=== PATIENT | female | born 1935 | race Caucasian/White ===

== ENCOUNTER 2020-04-13 07:11 | Day surgery (SDC) | payer MEDICARE ==
[~2020-04-13] VITALS: Ht 162.6 cm; Wt 80.2 kg
[~2020-04-13 07:11] MED LIST: CALCIUM; Citalopram HBr20 MG PO; ESCI20; ESTRADIOL; GEMF600; GLUCOPHAGE1000 M1 PO; HUMALOG KW100 UNIT/1; INSDET100; LEVSOD100; LEVSOD100 PO; LISI10; LISI20 PO; MULVITA; PRAV20 PO; ROSI4
== END 2020-04-13 09:25 | disposition home or self-care (01) ==
LOC: ORSCSDS 07:11
PROVIDERS: Ophthalmology
PROC: 08RK3JZ Replacement of Left Lens with Synthetic Substitute, Percutaneous Approach (ICD-10-PCS; principal; 2020-04-13 08:15)
DX: H25.12 Age-related nuclear cataract, left eye (principal); E11.9 Type 2 diabetes mellitus without complications; I10 Essential (primary) hypertension; F32.9 Major depressive disorder, single episode, unspecified; Z79.84 Long term (current) use of oral hypoglycemic drugs; Z79.899 Other long term (current) drug therapy
CPT/HCPCS: 82947; J2001; J2250; J3010; J3301; J7040; V2632

== ENCOUNTER 2020-12-24 15:47 | Emergency (ER) | payer MEDICARE ==
[~2020-12-24] VITALS: Ht 162.6 cm; Wt 74.4 kg
[2020-12-24 16:45] LABS: BASOPHILS ABSOLUTE AUTO 0.07 K/mm3 (0.00-0.23); BASOPHILS PERCENT AUTO 1 % (0-2); EOSINOPHILS ABSOLUTE AUTO 0.12 K/mm3 (0.00-0.68); EOSINOPHILS PERCENT AUTO 1 % (0-6); Hematocrit 39.6 % (33.0-51.0); Hemoglobin 12.9 g/dL (11.5-16.0); IMMATURE GRAN ABSOLUTE AUTO 0.07 K/mm3 (0.00-0.10); IMMATURE GRAN PERCENT AUTO 1 % (0-1); LYMPHOCYTES ABSOLUTE AUTO 0.78 K/mm3 (0.84-5.20); LYMPHOCYTES PERCENT AUTO 5 % (21-46); MONOCYTES ABSOLUTE AUTO 0.68 K/mm3 (0.16-1.47); MONOCYTES PERCENT AUTO 5 % (4-13); Mean Corpuscular HGB 30.1 pg (26.0-34.0); Mean Corpuscular HGB Conc 32.6 g/dL (31.5-36.5); Mean Corpuscular Volume 93 fL (80-100); NEUTROPHILS ABSOLUTE AUTO 13.22 K/mm3 (1.96-9.15); NEUTROPHILS PERCENT AUTO 88 % (41-73); Platelet Count 241 K/mm3 (150-400); RDW Coefficient Variation 12.1 % (11.7-14.2); RDW Standard Deviation 41.5 fL (35.1-46.3); Red Blood Cell Count 4.28 M/mm3 (3.80-5.20); White Blood Cell Count 14.94 K/mm3 (4.00-11.30)
[2020-12-24 17:03] LABS: Alanine Aminotransfer (ALT/SGP 26 U/L (12-78); Albumin/Globulin Ratio 1.1 (0.8-1.8); Alk Phos 89 U/L (50-136); Anion Gap 8 mmol/L (6-16); Aspartate Aminotrans (AST/SGOT 11 U/L (12-37); Bilirubin, Total 0.7 mg/dL (0.1-1.0); Blood Urea Nitrogen 19 mg/dL (8-24); Bun/Creatinine Ratio 21.5 (12.0-20.0); CO2, Blood 26 mmol/L (21-32); Calcium, Blood 9.6 mg/dL (8.5-10.1); Chloride, Blood 106 mmol/L (98-108); Creatinine, Blood 0.88 mg/dL (0.40-1.00); Globulin, Blood 3.8 g/dL (2.2-4.0); Glomerular Filtration Rate >60 (60-); Glucose, Blood 161 mg/dL (70-99); Potassium, Blood 4.4 mmol/L (3.5-5.5); Sodium, Blood 140 mmol/L (136-145); Total Protein, Blood 7.8 g/dL (6.4-8.2)
[2020-12-24 17:38] LABS: Source, Urine Clean Catch
[2020-12-24 17:41] LABS: Bilirubin, Urine Neg (Neg); Blood, Urine 3+ (Neg); Glucose Qualitative, Urine 1+ (Neg); Ketones, Urine 1+ (Neg); Leukocyte Esterase, Urine 1+ (Neg); Nitrite, Urine Neg (Neg); Protein, Urine 1+ (Neg); Specific Gravity, Urine 1.015 (1.003-1.022); Urobilinogen, Urine NORM (Normal)
[2020-12-24 17:52] LABS: Appearance, Urine Hazy (Clear); Color, Urine Pale Yellow (P-Yellow)
[2020-12-24 17:53] LABS: Bacteria Many /hpf; Red Blood Cells, Urine 0-2 /hpf (0-2); Squamous Epithelial Cells Few /hpf (Few)
[2020-12-24 22:13] LABS: SARS-Cov-2 (COVID-19) PCR, MMC NEGATIVE (NEGATIVE)
== END 2020-12-24 22:10 | disposition short-term general hospital (02) ==
LOC: ER 15:47
PROVIDERS: Physician Assistant; Student in an Organized Health Care Education/Training Program
DX: N13.6 Pyonephrosis (principal); Z79.899 Other long term (current) drug therapy; Z79.4 Long term (current) use of insulin; Z20.822 Contact with and (suspected) exposure to COVID-19
CPT/HCPCS: 36415; 74177; 80053; 81001; 82947; 83690; 85025; 87077; 87086; 87186; 93005; 93010; 96365-59; 96375; 99285-25; J0696; J1885; J2270; J2405; Q9967; U0004

== ENCOUNTER → 2022-02-09 | Outpatient (CLI) | payer MEDICARE ==
[2022-02-09 11:31] LABS: Source, Urine Clean Catch
[2022-02-09 13:15] LABS: Appearance, Urine Cloudy (Clear); Bilirubin, Urine Neg (Neg); Blood, Urine 2+ (Neg); Color, Urine Yellow (P-Yellow); Glucose Qualitative, Urine Neg (Neg); Ketones, Urine Neg (Neg); Leukocyte Esterase, Urine 3+ (Neg); Nitrite, Urine Neg (Neg); Protein, Urine 1+ (Neg); Urobilinogen, Urine NORM (Normal)
[2022-02-09 14:41] LABS: Squamous Epithelial Cells Few /hpf (Few); White Blood Cells, Urine TNTC /hpf (0-5)
[2022-02-09 14:42] LABS: Bacteria Many /hpf; Mucus Light (0-Heavy)
== END | disposition home or self-care (01) ==
LOC: LAB 11:30 → LAB SHORT 11:30
PROVIDERS: Internal Medicine
DX: R30.0 Dysuria (principal)
CPT/HCPCS: 81001; 87077; 87086; 87186

== ENCOUNTER → 2022-12-15 | Outpatient (CLI) | payer MEDICARE | END | disposition home or self-care (01) | LOC: LAB 15:52 → LAB SHORT 15:52 | DX: L08.9 Local infection of the skin and subcutaneous tissue, unspecified (principal) | CPT/HCPCS: 87070; 87075; 87205 ==

== ENCOUNTER 2024-08-12 09:34 | Inpatient (IN) | payer MEDICARE ==
[~2024-08-12] VITALS: Ht 157.5 cm; Wt 71.7 kg
[~2024-08-12 09:34] MED LIST changes: +BASAGLAR K100 UNIT/1 SC; -GLUCOPHAGE1000 M1 PO; -HUMALOG KW100 UNIT/1; +HUMALOG KW100 UNIT/1 SC; -INSDET100; +METFORMIN ER G500 MG PO
[2024-08-12] MEDS ORDERED: FentaNYL Citrate 50 MCG/ML 2 ML Injection IV PRN ×2 (10:45→17:00)
[2024-08-12] MEDS ORDERED: Morphine Sulfate 4 MG/1 ML Injection IV PRN (12:35)
[2024-08-12] MEDS ORDERED: Ketorolac Tromethamine 15mg Vial IV ONE (12:35)
[2024-08-12] MEDS ORDERED: Acetaminophen 325 MG TABLET PO ONE (12:40)
[2024-08-12] MEDS ORDERED: Dexamethasone Sod Phos 10 MG/ML 1ML VIAL IV ONE (12:40)
[2024-08-12] MEDS ORDERED: OXAYDO5 M1 PO (14:24)
[2024-08-12] MEDS ORDERED: METPRE4DP PO (14:24)
[2024-08-12] MEDS ORDERED: HYDROmorphone HCl/Pf 1MG SYR IV ONE (14:40)
[2024-08-12] MEDS ORDERED: FLU VACC TS2024-25(6MOS UP)/PF 45 MCG/0.5 ML SYRINGE IM SCH (16:55)
[2024-08-12] MEDS ORDERED: Acetaminophen 325 MG TABLET PO PRN (16:55)
[2024-08-12] MEDS ORDERED: HYDROcodone 5-APAP 325 TAB PO PRN (16:55)
[2024-08-12] MEDS ORDERED: Naloxone HCl 0.4MG / ML 1ML Vial IV PRN (16:55)
[2024-08-12] MEDS ORDERED: Ondansetron 4 MG TAB PO PRN (16:55)
[2024-08-12] MEDS ORDERED: Magnesium Hydroxide Conc 10 ML UDC PO PRN (16:55)
[2024-08-12] MEDS ORDERED: Bisacodyl 10 MG Supp PR PRN (17:00)
[2024-08-12] MEDS ORDERED: Ketorolac Tromethamine 30mg Vial IV PRN (17:05)
[2024-08-12 18:54] VITALS: BP 159/78
--- NOTE | 2024-08-12 18:54 | NUR ---
PT ARRIVED TO ROOM 1850. A/O X3. PT TALKING FULL SENTENCES. C/O PAIN IF MOVES OR TURNS. DID HAVE TO MOVE HER FROM GURNEY TO BED. DID WELL, BUT WITH MUCH RESISTANCE FROM PT PUSHING BACK WITH ARMS. LUNGS CLEAR, H/R REG, NO MURMUR NOTED. NO TELE. PT GRABS MOSTLY RT HIP WITH ANY MOVEMENT. PUREWICK IN PLACE REFUSING TO ROLL FOR BEDPAN OR TO STAND TRANSFER. BED IN LOW POSITIOIN CALL LITE IN REACH, PT VERBALIZED UNDERSTANDIING OF CALL LITE USE.
[2024-08-12] MEDS ORDERED: LOSA50 PO (20:25)
[2024-08-12] MEDS ORDERED: CO Q10100 MG PO (20:31)
[2024-08-12] MEDS ORDERED: Baclofen 10 MG Tab PO SCH (21:00)
[2024-08-12] MEDS ORDERED: Docusate Sodium 100 MG Cap PO SCH (21:00)
[2024-08-12] MEDS ORDERED: Insulin Human Lispro 100 Units/ML 3ML Syringe SC SCH (21:00)
[2024-08-13 02:20] VITALS: BP 144/66
--- NOTE | 2024-08-13 03:09 | NUR ---
SHIFT SUMMARY PT ARRIVED AT THE END OF THE PREVIOUS SHIFT. PT IS A/O X4, ABLE TO MAKE HER NEEDS KNOWN. COMMUNITY ENGAGEMENT LEADER NURSE SURYA COMPLETED ADMISSION ASSESSMENT, SKIN CHECK WITH THIS [employer] GEAR INSPECTOR. ATTENDS IN PLACE. PUREWICK IN PLACE. PT REFUSED Q2HR REPOSITIONING IN BED. TORADOL ADMINISTERED ORDERED WITH NORCO PRN PO FOR C/O RIGHT HIP PAIN. PILLOW PLACED UNDER THE RIGHT LEG. @HS LATE DINNER, B. NO ACUTE EVENTS/DISTRESS DURING THIS SHIFT. BED AT THE LOWEST POSITION, CALL LIGHT W/I REACH.
[2024-08-13 05:16] LABS: BASOPHILS ABSOLUTE AUTO 0.02 K/mm3 (0.00-0.23); BASOPHILS PERCENT AUTO 0 % (0-2); EOSINOPHILS PERCENT AUTO 0 % (0-6); Hematocrit 35.8 % (33.0-51.0); Hemoglobin 12.1 g/dL (11.5-16.0); IMMATURE GRAN ABSOLUTE AUTO 0.06 K/mm3 (0.00-0.10); IMMATURE GRAN PERCENT AUTO 0 % (0-1); LYMPHOCYTES ABSOLUTE AUTO 0.75 K/mm3 (0.84-5.20); LYMPHOCYTES PERCENT AUTO 5 % (21-46); MONOCYTES ABSOLUTE AUTO 0.67 K/mm3 (0.16-1.47); MONOCYTES PERCENT AUTO 5 % (4-13); Mean Corpuscular HGB 30.7 pg (26.0-34.0); Mean Corpuscular HGB Conc 33.8 g/dL (31.5-36.5); Mean Corpuscular Volume 91 fL (80-100); Mean Platelet Volume 11.4 fL (9.1-12.4); NEUTROPHILS ABSOLUTE AUTO 13.48 K/mm3 (1.96-9.15); NEUTROPHILS PERCENT AUTO 90 % (41-73); Platelet Count 258 K/mm3 (150-400); RDW Coefficient Variation 12.7 % (11.7-14.2); RDW Standard Deviation 41.8 fL (35.1-46.3); Red Blood Cell Count 3.94 M/mm3 (3.80-5.20); White Blood Cell Count 14.98 K/mm3 (4.00-11.30)
[2024-08-13] MEDS ORDERED: Levothyroxine Sodium 0.1 MG Tab PO SCH (06:00)
[2024-08-13 06:11] LABS: Bun/Creatinine Ratio 37.3 (12.0-20.0); Calcium, Blood 9.2 mg/dL (8.5-10.1); Creatinine, Blood 0.72 mg/dL (0.40-1.00); Potassium, Blood 4.8 mmol/L (3.5-5.5)
[2024-08-13 07:48] VITALS: BP 159/67
[2024-08-13] MEDS ORDERED: Enoxaparin 40 MG/0.4 ML SYR SC SCH (09:00)
[2024-08-13] MEDS ORDERED: Lisinopril 20 MG Tab PO SCH (09:00)
[2024-08-13] MEDS ORDERED: Lactated Ringer's 1,000 ML IV SCH (09:20)
[2024-08-13] MEDS ORDERED: HYDROcodone 5-APAP 325 TAB PO PRN (11:20)
[2024-08-13] MEDS ORDERED: CELE100 PO (11:36)
[2024-08-13] MEDS ORDERED: CENTRUM SILVER1 EAC2 PO (11:36)
--- NOTE | 2024-08-13 15:30 | NUR ---
Patient is lying in bed and immediately states that she is in pain and she has been given all that she is "allowed to have." Her spouse, Archie and son Casa are bedside. She explains about her fall out of bed and the injuries that the fall caused. She also talks about the stressors they are feeling because their house has termites and they don't know the extent but they know it is extreme. They share about the patient's poor ED and imaging experience as well. I provided therapeutic listening and prayer. Patient and family voice their appreciation for the visit and prayer and tell me they are interested in further discussion about their poor treatment (at the present was not good timing). I will continue to remain available to patient and family.
[2024-08-13 15:44] VITALS: BP 98/51
--- NOTE | 2024-08-13 18:42 | NUR ---
SHIFT SUMMARY PATIENT ALERT AND INTERACTIVE WHEN AWAKE. PATIENT RESISTANT WITH TURNING BECAUSE OF FEAR OF PAIN. EDUCATION PROVIDED RELATED TO PAIN CONTROL AND MEDICATIONS. PATIENT ADMITS THAT SHE IS AFRAID OF GETTING ADDICTED TO PAIN. PATIENT ATTEMPTED TO WORK WITH PT/OT. PATIENT UNABLE TO SIT AT SIDE OF BED BECAUSE OF PAIN. PATIENT MEDICATED FREQUENTLY WITH PAIN MEDS. PROVIDER NOTIFIED OF UNCONTROLLED PAIN WITH MOVEMENT. PAIN MEDS HELP PATIENT REST BUT NO CHANGE IN PAIN LEVELS WITH MOVEMENT. PATIENT TOLERATED BED BATH AND LINEN CHANGE WITH PROLONGED PROCESS TO REDUCE AGRIVATING PAIN,
[2024-08-13 20:43] VITALS: BP 110/47
[2024-08-13] MEDS ORDERED: Lidocaine 4% 1 Patch TOP PRN (22:20)
--- NOTE | 2024-08-13 22:27 | NUR ---
NEW T-ORDER FROM THE ON-CALL HOSPITALIST MICHELLE: LIDOCAINE PATCH 4% TOPICAL, QD PRN, FOR 12 HRS TO THE AFFECTED AREA. ENTERED TO [employer], SEE EMAR. NO ADDITIONAL NEW ORDERS AT THIS TIME.
--- NOTE | 2024-08-14 03:11 | NUR ---
SHIFT SUMMARY PT IS A/O X4. MEDICATED PER EMAR FOR RIGHT HIP PAIN. PT REFUSED REPOSITIONING, PT DID ALLOW TO PUT A PILLOW UNDER THE RIGHT HIP AND LE'S DURING THE NIGHT HRS. PUREWICK IN PLACE. NEW ORDER FOR LIDOCAINE PATCH RECEIVED FROM THE ON-CALL HOSPITALIST (SEE PREVIOUS NOTE). HS B. LR INFUSING @75MLS/HR ORDERED. CONTINUOUS PULSE OXIMETER, O2 SAT'S> 95%. DURING THE SHIFT CHANGE, SNACK WITH ENSURE PROVIDED, 100% INTAKE. HOB WAS ELEVATED FOR ASPIRATION PRECAUTIONS DURING THE SNACKTIME. PT TOLERATED WELL. CONTINUING PT EDUCATION R/T PAIN MANAGMENT AND POSITIONING TO PREVENT ASPIRATION. NO ACUTE EVENTS DURING THIS SHIFT. PT RESTING WELL W/O ACUTE DISTRESS, RR EVEN, UNLABORED. BED AT THE LOWEST POSITION, CALL LIGHT WITHIN REACH. PT IS ABLE TO MAKE HER NEEDS KNOWN.
[2024-08-14 03:59] VITALS: BP 116/62
[2024-08-14 04:49] LABS: BASOPHILS ABSOLUTE AUTO 0.08 K/mm3 (0.00-0.23); BASOPHILS PERCENT AUTO 1 % (0-2); EOSINOPHILS ABSOLUTE AUTO 0.32 K/mm3 (0.00-0.68); EOSINOPHILS PERCENT AUTO 2 % (0-6); Hematocrit 33.6 % (33.0-51.0); Hemoglobin 10.9 g/dL (11.5-16.0); IMMATURE GRAN ABSOLUTE AUTO 0.07 K/mm3 (0.00-0.10); IMMATURE GRAN PERCENT AUTO 0 % (0-1); LYMPHOCYTES ABSOLUTE AUTO 2.23 K/mm3 (0.84-5.20); LYMPHOCYTES PERCENT AUTO 14 % (21-46); MONOCYTES ABSOLUTE AUTO 1.52 K/mm3 (0.16-1.47); MONOCYTES PERCENT AUTO 10 % (4-13); Mean Corpuscular HGB 30.1 pg (26.0-34.0); Mean Corpuscular HGB Conc 32.4 g/dL (31.5-36.5); Mean Corpuscular Volume 93 fL (80-100); Mean Platelet Volume 11.4 fL (9.1-12.4); NEUTROPHILS ABSOLUTE AUTO 11.47 K/mm3 (1.96-9.15); NEUTROPHILS PERCENT AUTO 73 % (41-73); Platelet Count 243 K/mm3 (150-400); RDW Standard Deviation 44.3 fL (35.1-46.3); Red Blood Cell Count 3.62 M/mm3 (3.80-5.20); White Blood Cell Count 15.69 K/mm3 (4.00-11.30)
[2024-08-14 05:15] LABS: Bun/Creatinine Ratio 36.5 (12.0-20.0); Creatinine, Blood 1.15 mg/dL (0.40-1.00); Potassium, Blood 4.7 mmol/L (3.5-5.5)
[2024-08-14] MEDS ORDERED: NS 1,000 ML IV SCH (07:00)
[2024-08-14 07:19] VITALS: BP 105/51
[2024-08-14] MEDS ORDERED: Losartan Potassium 50 MG Tab PO SCH (09:00)
[2024-08-14] MEDS ORDERED: Citalopram Hydrobromide 20 MG Tab PO SCH (09:00)
[2024-08-14 16:17] VITALS: BP 118/52
--- NOTE | 2024-08-14 18:15 | NUR ---
SHIFT SUMMARY PATIENT ALERT AND INTERACTIVE. PATIENT CONTINUES TO HAVE EPISODES OF EXTREME PAIN. PATIENT ABLE TO MOVE LEG UP AND DOWN IN THE BED AT TIMES WITH NO DISCOMFORT. UNABLE TO RAISE HEAD OF BED PAST 30 DEGREES WITHOUT EXTREME PAIN AND UNABLE TO ROLL OVER TO HER SIDE WITHOUT EXTREME PAIN. LIDOCAINE PATCH APPLIED TODAY WITH SOME RELIEF PER PATIENT. PATIENT MEDICATED WITH ORAL PAIN MEDS AND IV PAIN MEDS THROUGHOUT THE DAY. FAMILY IN AND OUT TO SEE PATIENT.
[2024-08-14 20:26] VITALS: BP 112/55
[2024-08-14] MEDS ORDERED: Insulin Glargine-Yfgn 100 Unit/mL 3 ML SYR SC SCH (21:00)
--- NOTE | 2024-08-15 03:18 | NUR ---
SHIFT SUMMARY @HS FAMILY AND SPOUSE BY THE BEDSIDE. PT IS A/O X4, SLURRED SPEECH, ABLE TO MAKE HER NEEDS KNOWN. PT REFUSED REPOSITIONING D/T RIGHT HIP PAIN DURING THIS SHIFT. MEDICATED FOR 6/10 RIGHT SIDED HIP PAIN DURING NIGHT HRS. CONTINUOUS PULSE OXIMETER SAT'S>97% ON RA. PUREWICK IN PLACE DRAINING TEA COLOR URINE. HS B, GLARGINE ADMINISTERED ORDERED. NO ACUTE EVENTS DURING THIS SHIFT. BED AT THE LOWEST POSITION, CALL LIGHT W/I REACH.
[2024-08-15 04:25] VITALS: BP 151/71
[2024-08-15 05:16] LABS: BASOPHILS ABSOLUTE AUTO 0.07 K/mm3 (0.00-0.23); BASOPHILS PERCENT AUTO 1 % (0-2); EOSINOPHILS ABSOLUTE AUTO 0.32 K/mm3 (0.00-0.68); EOSINOPHILS PERCENT AUTO 3 % (0-6); Hematocrit 35.1 % (33.0-51.0); Hemoglobin 11.4 g/dL (11.5-16.0); IMMATURE GRAN ABSOLUTE AUTO 0.04 K/mm3 (0.00-0.10); IMMATURE GRAN PERCENT AUTO 0 % (0-1); LYMPHOCYTES ABSOLUTE AUTO 1.63 K/mm3 (0.84-5.20); LYMPHOCYTES PERCENT AUTO 13 % (21-46); MONOCYTES ABSOLUTE AUTO 1.16 K/mm3 (0.16-1.47); MONOCYTES PERCENT AUTO 10 % (4-13); Mean Corpuscular HGB 30.6 pg (26.0-34.0); Mean Corpuscular HGB Conc 32.5 g/dL (31.5-36.5); Mean Corpuscular Volume 94 fL (80-100); Mean Platelet Volume 11.5 fL (9.1-12.4); NEUTROPHILS ABSOLUTE AUTO 9.01 K/mm3 (1.96-9.15); NEUTROPHILS PERCENT AUTO 74 % (41-73); Platelet Count 231 K/mm3 (150-400); RDW Standard Deviation 44.5 fL (35.1-46.3); Red Blood Cell Count 3.73 M/mm3 (3.80-5.20); White Blood Cell Count 12.23 K/mm3 (4.00-11.30)
[2024-08-15 05:40] LABS: Bun/Creatinine Ratio 39.2 (12.0-20.0); Calcium, Blood 8.6 mg/dL (8.5-10.1); Creatinine, Blood 0.64 mg/dL (0.40-1.00); Potassium, Blood 4.6 mmol/L (3.5-5.5)
[2024-08-15 07:30] VITALS: BP 174/76
[2024-08-15] MEDS ORDERED: LORazepam 2 MG/ML 1ML Injection IV PRN (08:00)
[2024-08-15] MEDS ORDERED: Pregabalin 75 MG Cap PO SCH (10:00)
[2024-08-15] MEDS ORDERED: Baclofen 10 MG Tab PO PRN (10:00)
[2024-08-15 17:00] VITALS: BP 168/92
--- NOTE | 2024-08-15 17:34 | NUR ---
SHIFT SUMMARY PATIENT ALERT AND INTERACTIVE. CONTINUES TO BE IN EXTREME PAIN THROUGHOUT THE DAY. PATIENT REFUSING TO BE TURNED AND MAKING IT CHALLENGING TO PROVIDE CARE. PATIENT MEDICATED FREQUENTLY WITH PAIN MEDS. PATIENT CONTINUES TO BE ABLE TO MOVE LEG UP AND DOWN AND CROSS AT ANKLES. PATIENT SCREAMS OUT IN PAIN IF TURNED OR HEAD OF BED ELEVATED. ATTEMPTED TO EDUCATE PATIENT AND FAMILY RELATED TO EATING LAYING FLAT. PAIN MEDICATIONS FOR PAIN CONTROL RELATED TO VS. FAMILY AND PATIENT CONTINUE TO NEED EDUCATION RELATED TO SAFETY, PLAN OF CARE, AND PAIN MANAGEMENT.
[2024-08-15] MEDS ORDERED: OxyCODONE 5 mg/Acetamin 325 mg TABLET PO SCH (18:00)
--- NOTE | 2024-08-15 20:12 | NUR ---
PT RETURNED FROM MRI. SHE WAS TRANSFERRED BACK TO HER BED
[2024-08-15 20:13] VITALS: BP 161/78
[2024-08-16 03:36] VITALS: BP 123/57
--- NOTE | 2024-08-16 04:19 | NUR ---
SHIFT SUMMARY PT ALERT ORIENTED WITH CONFUSION AND FORGETFULNESS. SHE HAS BEEN VERY GROGGY SINCE ARRIVING BACK FROM THE MRI. SHE TOOK ATIVAN BEFORE THE PROCEDURE. SHES CONTINUING TO TAKE THE ROUTINE PERCOCET WHICH SEEMS TO HELP TO CONTROL HER PAIN. WEVE TURNED HER A FEW TIMES AND CHANGED HER AND SHE HAD NO EPISODES OF SCREAMING. VSS ON RA SATTING AT 93-95%. SHE HAD THE MRI DONE EARLIER THIS SHIFT. SHE HAS A PUREWICK ON DRAINING THINK VIJAY URINE. WITH LOTS OF SEDIMENT. SHE REMAINS ON A CONTINUOUS PULSE OX. HER AND SON CAME IN TOP SEE HER EARLIER IN THE SHIFT. RESTING IN BED AT THIS TIME WITH CALL LIGHT IN REACH
[2024-08-16 05:08] LABS: BASOPHILS ABSOLUTE AUTO 0.08 K/mm3 (0.00-0.23); BASOPHILS PERCENT AUTO 1 % (0-2); EOSINOPHILS ABSOLUTE AUTO 0.25 K/mm3 (0.00-0.68); EOSINOPHILS PERCENT AUTO 2 % (0-6); Hematocrit 35.6 % (33.0-51.0); Hemoglobin 11.6 g/dL (11.5-16.0); IMMATURE GRAN ABSOLUTE AUTO 0.07 K/mm3 (0.00-0.10); IMMATURE GRAN PERCENT AUTO 1 % (0-1); LYMPHOCYTES PERCENT AUTO 8 % (21-46); MONOCYTES ABSOLUTE AUTO 1.59 K/mm3 (0.16-1.47); MONOCYTES PERCENT AUTO 10 % (4-13); Mean Corpuscular HGB 30.4 pg (26.0-34.0); Mean Corpuscular HGB Conc 32.6 g/dL (31.5-36.5); Mean Corpuscular Volume 93 fL (80-100); Mean Platelet Volume 11.3 fL (9.1-12.4); NEUTROPHILS ABSOLUTE AUTO 12.13 K/mm3 (1.96-9.15); NEUTROPHILS PERCENT AUTO 79 % (41-73); Platelet Count 251 K/mm3 (150-400); RDW Coefficient Variation 12.9 % (11.7-14.2); RDW Standard Deviation 44.1 fL (35.1-46.3); Red Blood Cell Count 3.82 M/mm3 (3.80-5.20); White Blood Cell Count 15.42 K/mm3 (4.00-11.30)
[2024-08-16 05:45] LABS: Albumin/Globulin Ratio 0.9 (0.8-1.8); Bilirubin, Total 0.9 mg/dL (0.1-1.0); Bun/Creatinine Ratio 36.8 (12.0-20.0); Creatinine, Blood 0.52 mg/dL (0.40-1.00); Globulin, Blood 3.4 g/dL (2.2-4.0); Potassium, Blood 4.5 mmol/L (3.5-5.5); Total Protein, Blood 6.4 g/dL (6.4-8.2)
[2024-08-16] MEDS ORDERED: Calcitonin Salmon 3.7 ML Nasal Spray SCH (09:00)
[2024-08-16 10:16] VITALS: BP 134/53
[2024-08-16] MEDS ORDERED: Ketorolac Tromethamine 15mg Vial IV PRN (15:55)
[2024-08-16 17:00] VITALS: BP 139/59
--- NOTE | 2024-08-16 19:22 | NUR ---
PT PLEASANT TODAY. STATES DID WELL WITH MUSC RELAX AND PAIN MED. MANY FAMILY MEMBERS IN TODAY. PT ABLE TO SIT UP BETTER TODAY AFTER MEDS FOR LUNCH AND FOR DINNER. DID GET SLEEPY AFTER MUSC RELAX AFTER LUNCH. NO FURTHER CONCERNS NOTED. BED IN LOW POSITION, CALL LITE IN REACH, CALLS APPROP
[2024-08-16 19:37] VITALS: BP 123/60
[2024-08-17 03:52] VITALS: BP 124/57
--- NOTE | 2024-08-17 04:54 | NUR ---
SHIFT SUMMARY PT ALERT ORIENTED X 4 ABLE TO VERBALIZE NEEDS C/O PAIN TO RT HIP AND BACK MEDICATED WITH NORCO AND BACLOFEN WITH GOOD RELIEF. VSS ON RA SATTING AT 96%. FS WAS 262 THIS SHIFT. SHES KEPT TURNED AND REPOSITIONED. SHE HAS A PUREWICK ON. REMAINS ON A CONTINUOUS PULSE OX. RESTING IN BED AT THIS TIME WITH CALL LIGHT IN REACH
[2024-08-17 07:18] VITALS: BP 133/67
[2024-08-17 08:48] LABS: BASOPHILS ABSOLUTE AUTO 0.07 K/mm3 (0.00-0.23); BASOPHILS PERCENT AUTO 1 % (0-2); EOSINOPHILS ABSOLUTE AUTO 0.37 K/mm3 (0.00-0.68); EOSINOPHILS PERCENT AUTO 3 % (0-6); IMMATURE GRAN ABSOLUTE AUTO 0.05 K/mm3 (0.00-0.10); IMMATURE GRAN PERCENT AUTO 0 % (0-1); LYMPHOCYTES ABSOLUTE AUTO 1.11 K/mm3 (0.84-5.20); LYMPHOCYTES PERCENT AUTO 8 % (21-46); MONOCYTES ABSOLUTE AUTO 1.25 K/mm3 (0.16-1.47); MONOCYTES PERCENT AUTO 9 % (4-13); Mean Corpuscular HGB 30.6 pg (26.0-34.0); Mean Corpuscular HGB Conc 33.3 g/dL (31.5-36.5); Mean Corpuscular Volume 92 fL (80-100); Mean Platelet Volume 11.2 fL (9.1-12.4); NEUTROPHILS ABSOLUTE AUTO 10.83 K/mm3 (1.96-9.15); NEUTROPHILS PERCENT AUTO 79 % (41-73); Platelet Count 239 K/mm3 (150-400); RDW Coefficient Variation 12.9 % (11.7-14.2); Red Blood Cell Count 3.92 M/mm3 (3.80-5.20); White Blood Cell Count 13.68 K/mm3 (4.00-11.30)
[2024-08-17 09:16] LABS: Albumin, Blood 2.9 g/dL (3.4-5.0); Albumin/Globulin Ratio 0.8 (0.8-1.8); Bilirubin, Total 0.8 mg/dL (0.1-1.0); Bun/Creatinine Ratio 28.2 (12.0-20.0); Calcium, Blood 8.9 mg/dL (8.5-10.1); Creatinine, Blood 0.53 mg/dL (0.40-1.00); Globulin, Blood 3.6 g/dL (2.2-4.0); Potassium, Blood 4.2 mmol/L (3.5-5.5); Total Protein, Blood 6.5 g/dL (6.4-8.2)
[2024-08-17] MEDS ORDERED: Insulin Human Lispro 100 Units/ML 3ML Syringe SC SCH (11:30)
--- NOTE | 2024-08-17 12:40 | NUR ---
PT FEELING SOME BETTER WITH TORADOL. RECEIVED PAIN PILLS. ENCOURAGED PT TO GET UP IN CHAIR. SHE AGREED. PT ABLE TO STAND WITH 1 ASST. DID MOST OF WORK. TOOK BABY STEPS TO PIVOT TO CHAIR. SHE DID MOST OF WORK HERSELF. AGREED TO TRY TO STAY UP FOR DURATION OF LUNCH, THEN WE WILL GET BACK TO BED. GAVE PT LOST OF ENCOURAGEMENT AND PRAISE FOR WORK DONE. PT STATES PAIN TOLERABLE AT THIS TIME SITTING IN CHAIR.
[2024-08-17 15:03] VITALS: BP 93/53
[2024-08-17 17:44] VITALS: BP 166/56
--- NOTE | 2024-08-17 18:27 | NUR ---
PT PLEASANT TODAY. DID START ON TORADOL TODAY. DID WELL. ABLE TO GET UP TO CHAIR MIN ASST, THEN BACK TO BED. WAS UP FOR ABOUT 1 1/2 HOURS. DID ALSO WORK WITH PT TODAY. FAMILY IN TO SEE TODAY. PAIN MANAGED WITH AVAIL MEDS. TORADOL SEEMS TO HAVE MADE A BIG DIFFERENCE. NO OTHER NEW CONCERNS NOTED. BED IN LOW POSITION, CALL LITE IN REACH, CALLS APPROP
--- NOTE | 2024-08-17 18:46 | NUR ---
PT STATES FEELS LIKE TAKES PAIN PILL, SLEEPS, EATS, SLEEPS, AND THAT IS ALL SHE DOES. STATES FEELS NOT REMEMBERING MUCH ELSE. DISCUSSED WITH HER TO ASK DR TO TRY CUTTING PAIN MED BACK SOME AND CONTINUE TORADOL. WROTE ON WHITE BOARD ALSO
[2024-08-17 19:38] VITALS: BP 110/58
[2024-08-18 04:11] VITALS: BP 156/66
--- NOTE | 2024-08-18 05:05 | NUR ---
SHIFT SUMMARY PT ALERT ORIENTED X 4 ABLE TO CALL AND VERBALIZE NEEDS. SHES DOING BETTER WITH HER TURNS IN THE BED RT HIP STILL HAS PAIN BUT THE PERCOCET IS KEEPING THE PAIN BETTER CONTROLLED. SHE HAS A PUREWICK IN PLACE DRAINING VIJAY URINE. VSS ON RA SATTING AT 98%. FS DONE AC AND HS WAS 275. THERE WORKING ON A PLAN FOR DISCHARGE. RESTING IN BED AT THIS TIME WITH CALL LIGHT IN REACH
[2024-08-18 06:39] LABS: BASOPHILS ABSOLUTE AUTO 0.08 K/mm3 (0.00-0.23); BASOPHILS PERCENT AUTO 1 % (0-2); EOSINOPHILS ABSOLUTE AUTO 0.41 K/mm3 (0.00-0.68); EOSINOPHILS PERCENT AUTO 4 % (0-6); Hematocrit 35.1 % (33.0-51.0); Hemoglobin 11.3 g/dL (11.5-16.0); IMMATURE GRAN ABSOLUTE AUTO 0.08 K/mm3 (0.00-0.10); IMMATURE GRAN PERCENT AUTO 1 % (0-1); LYMPHOCYTES PERCENT AUTO 13 % (21-46); MONOCYTES PERCENT AUTO 11 % (4-13); Mean Corpuscular HGB 30.1 pg (26.0-34.0); Mean Corpuscular HGB Conc 32.2 g/dL (31.5-36.5); Mean Corpuscular Volume 93 fL (80-100); Mean Platelet Volume 11.3 fL (9.1-12.4); NEUTROPHILS ABSOLUTE AUTO 8.08 K/mm3 (1.96-9.15); NEUTROPHILS PERCENT AUTO 71 % (41-73); Platelet Count 239 K/mm3 (150-400); RDW Coefficient Variation 12.7 % (11.7-14.2); RDW Standard Deviation 43.4 fL (35.1-46.3); Red Blood Cell Count 3.76 M/mm3 (3.80-5.20); White Blood Cell Count 11.35 K/mm3 (4.00-11.30)
[2024-08-18 07:11] LABS: Albumin, Blood 2.5 g/dL (3.4-5.0); Albumin/Globulin Ratio 0.7 (0.8-1.8); Bilirubin, Total 0.6 mg/dL (0.1-1.0); Bun/Creatinine Ratio 32.6 (12.0-20.0); Calcium, Blood 8.6 mg/dL (8.5-10.1); Creatinine, Blood 0.68 mg/dL (0.40-1.00); Globulin, Blood 3.5 g/dL (2.2-4.0); Potassium, Blood 4.3 mmol/L (3.5-5.5)
[2024-08-18] MEDS ORDERED: OxyCODONE 10/Acetamin 325 TABLET PO PRN (07:20)
[2024-08-18 07:45] VITALS: BP 149/70
[2024-08-18] MEDS ORDERED: BACLOFEN5 M1 PO (13:27)
[2024-08-18] MEDS ORDERED: Acetaminophen650 M1 PO (13:28)
[2024-08-18] MEDS ORDERED: LIDO700A20 TOP (13:29)
[2024-08-18] MEDS ORDERED: DULCOLAX400 MG/5 M PO (13:29)
[2024-08-18] MEDS ORDERED: PREG150 PO (13:30)
[2024-08-18] MEDS ORDERED: Percocet 5-3251 EACH PO (13:30)
--- NOTE | 2024-08-18 13:46 | NUR ---
Patient tells me that she will D/C to [facility]. She shares her worries and fears about the transfer, Her spouse Archie, and son Casa are present. They explain about the struggles with pain and mobility the patient is having. I provided therapeutic listening, anxiety containment and prayer. Patient and family reponded well and showed sings of reduced stress
--- NOTE | 2024-08-18 14:40 | NUR ---
DISCHARGE SUMMARY PATIENT WITH PAIN TODAY UP TO 04/08, MEDICATED PER EMAR WITH SOME RELIEF. BEST RELIEF WAS AFTER LIDOCAINE PATCH, PATIENT ABLE TO TRANSFER FROM BED TO WHEELCHAIR. IV REMOVED. PHONE CALL TO [facility]. LMOM REQUESTING TO GIVE REPORT. WAITING FOR CALL BACK.
--- NOTE | 2024-08-18 15:35 | NUR ---
ATTEMPTED ANOTHER PHONE CALL TO [facility] FOR NURSE REPORT.WAITING ON HOLD GREATER THAN 5 MINUTES.
[2024-08-18] MEDS ORDERED: Pregabalin 75 MG Cap PO SCH (21:00)
== END 2024-08-18 14:38 | DRG 537 ==
LOC: ER 09:34 → MEDS 09:35 → ERHOLD 09:35 → MEDS 18:48
PROVIDERS: Student in an Organized Health Care Education/Training Program; ADMIT Internal Medicine
DX: S73.191A Other sprain of right hip, initial encounter (principal); M48.56XA Collapsed vertebra, not elsewhere classified, lumbar region, initial encounter for fracture; N17.9 Acute kidney failure, unspecified; M25.851 Other specified joint disorders, right hip; M54.16 Radiculopathy, lumbar region; S39.012A Strain of muscle, fascia and tendon of lower back, initial encounter; I10 Essential (primary) hypertension; E03.9 Hypothyroidism, unspecified; Z79.890 Hormone replacement therapy; Z66 Do not resuscitate; W06.XXXA Fall from bed, initial encounter; Z79.4 Long term (current) use of insulin; Z79.84 Long term (current) use of oral hypoglycemic drugs; Z79.899 Other long term (current) drug therapy; Z90.710 Acquired absence of both cervix and uterus; Z98.41 Cataract extraction status, right eye
CPT/HCPCS: 36415; 72100; 72148; 72192; 73502; 73721; 80048; 80053; 82306; 82947; 85025; 94762; 96372; 96374-59; 96375; 96376; 97162; 97166; 97530; 99285-25; A9270; G0378; J1100; J1171; J1650; J1815; J1885; J2270; J3010; J7030; J7120

== ENCOUNTER 2024-08-27 13:15 | Emergency (ER) | payer MEDICARE ==
[~2024-08-27] VITALS: Ht 162.6 cm; Wt 72.6 kg
[~2024-08-27 13:15] MED LIST changes: +Acetaminophen650 M1 PO; +BACLOFEN5 M1 PO; +CELE100 PO; +CENTRUM SILVER1 EAC2 PO; +CO Q10100 MG PO; +DULCOLAX400 MG/5 M PO; +LIDO700A20 TOP; +LOSA50 PO; +METPRE4DP PO; +OXAYDO5 M1 PO; +PREG150 PO; +Percocet 5-3251 EACH PO
[2024-08-27 15:15] VITALS: BP 123/47
== END 2024-08-27 15:40 | disposition home or self-care (01) ==
LOC: ER 13:15
DX: T17.928A Food in respiratory tract, part unspecified causing other injury, initial encounter (principal); E11.9 Type 2 diabetes mellitus without complications; I10 Essential (primary) hypertension; E03.9 Hypothyroidism, unspecified; Z79.4 Long term (current) use of insulin; Z79.84 Long term (current) use of oral hypoglycemic drugs; Z79.1 Long term (current) use of non-steroidal anti-inflammatories (NSAID); Z79.890 Hormone replacement therapy; Z79.899 Other long term (current) drug therapy; W44.F3XA Food entering into or through a natural orifice, initial encounter
CPT/HCPCS: 71045; 82947; 93005; 93010; 99284-25